=== PATIENT | male | born 1980 | race Caucasian/White ===

== ENCOUNTER 2018-01-07 17:29 | Emergency (ER) | END 2018-01-07 18:50 | disposition home or self-care (01) ==

== ENCOUNTER 2018-01-13 10:42 | Emergency (ER) | END 2018-01-13 12:29 | disposition home or self-care (01) ==

== ENCOUNTER 2018-01-16 11:59 | Emergency (ER) | END 2018-01-16 12:00 | disposition left against medical advice (07) ==